=== PATIENT | male | born 1995 | race Two or more races ===

== ENCOUNTER 2018-10-24 20:24 | Emergency (ER) | payer SELFPAY ==
[~2018-10-24] VITALS: Ht 190.5 cm; Wt 81.6 kg
[2018-10-24 20:35] VITALS: BP 130/75
--- NOTE | 2018-10-24 20:35 | NUR ---
ED Nurse Note: Patient walked into ED c/o vomiting that started yesterday accompanied by abdominal pain. states that he started experiencing these symptoms after eating pasta. reports 4 episodes of vomiting. Alert and oriented x4, verbally reponsive. VSS.
--- NOTE | 2018-10-24 20:52 | Emergency Room Report ---
History of Present Illness General Chief Complaint: Vomiting Source: Patient (Jose Lunsford MD) Present Illness HPI This patient's abdominal pain began at 4 AM. Patient has a history of Crohn's disease. He is never had pain like this before. He takes Imuran every 2 weeks. Denies any fevers or chills. He was vomiting this afternoon. The pain is episodic and when it hits him is fairly severe. At this time he rates the pain 9/10 and cramping but an underlying amount of it is constant. It does not radiate. He feels it below his bellybutton. He last moved his bowels at 2 PM. No diarrhea. He denies any dysuria. No ill contacts. No unusual foods recognized. No sore throat, chest pain, palpitations, dysuria, shortness of breath, joint pain, rashes, depression, anxiety, visual changes, headache. (Jose Lunsford MD) Allergies: Coded Allergies: No Known Allergies (Unverified , 10/24/18) Patient History Past Medical History: see triage record Social History: Denies: smoking, alcohol use, drug use Social History Narrative Visiting from [place] - will be in town 2 weeks Reviewed Nursing Documentation: PMH: Agreed; PSxH: Agreed (Jose Lunsford MD) Nursing Documentation-PMH Past Medical History: No History, Except For (Jose Lunsford MD) Review of Systems All Other Systems: negative except mentioned in HPI (Jose Lunsford MD) Physical Exam Vital Signs Date Time Temp Pulse Resp B/P (MAP) Pulse Ox O2 Delivery O2 Flow Rate FiO2 10/24/18 20:29 98.8 77 18 130/75 (93) 94 Room Air Sp02 EP Interpretation: reviewed, normal General Appearance: well appearing, no apparent distress, GCS 15 Head: normocephalic, atraumatic Eyes: bilateral eye normal inspection, bilateral eye PERRL, bilateral eye EOMI ENT: moist mucus membranes Neck: supple Respiratory: lungs clear, normal breath sounds Cardiovascular #1: regular rate, rhythm Cardiovascular #2: 2+ radial (R) Gastrointestinal: normal inspection, normal bowel sounds, no mass, non- distended, no guarding, no rebound, tenderness - Suprapubic and right lower quadrant Genitourinary: no CVA tenderness Musculoskeletal: back normal, gait/station normal, normal range of motion Neurologic: alert, oriented x3, grossly normal Psychiatric: mood/affect normal Skin: no rash (Jose Lunsford MD) Medical Decision Making Diagnostic Impression: Primary Impression: Abdominal pain Qualified Codes: R10.9 - Unspecified abdominal pain Additional Impression: History of Crohn's disease ER Course The patient has a history of Crohn's disease and presents with abdominal pain. Differential includes diverticulitis, appendicitis, gastroenteritis, exacerbation of Crohn's disease amongst others. Evaluation will be with labs. The patient will receive IV hydration, Zofran and morphine. Depending his labs CT of the scan of the abdomen may need to be ordered. Patient with leukocytosis. This is a complex history of this patient with Crohn's on Imuran and due to the area of the pain we need to exclude appendicitis definitively. A CT of the abdomen has been ordered. Pain resolved. Abdomen is soft without guarding or rebound. Signed out to Dr. Campos to review CT and urinalysis. (Consideration of outpatient observation and re-evaluation in the emergency department as the patient is visiting and has no other outpatient follow-up option.) (Jose Lunsford MD) ER Course Hospital Course 23-year-old M presents to ED with abdominal pain Clinical course patient initially seen and evaluated by Dr Lunsford; please see his note for full history and physical Labs - minimal leukocytosis, electrolytes ok, LFTs normal, UA unremarkable CT scan shows inflammation in RLQ consistent with terminal ileitis. On reassessment pain improved. No guarding or rebound. No signs of appendicitis. History of Crohn's disease which is consistent with terminal ileitis. Patient states he feels better and wishes to be discharged. We provided with prescriptions. Instructed to return to ED if symptoms worsen I feel this is a highly complex case requiring extensive working including EKG/ Rhythm strip, Xray/CT/US, Blood/urine lab work, repeat exams while in ED, and administration of strong opiates/narcotics for pain control, admission to hospital or close patient follow up. Diagnosis - abdominal pain, h/o crohns disease Stable and discharged to home. Followup with PMD. Return to ED if symptoms recur or worsen Labs Test 10/24/18 21:25 10/24/18 23:02 White Blood Count 11.0 K/UL (4.8-10.8) Red Blood Count 5.10 M/UL (4.70-6.10) Hemoglobin 16.7 G/DL (14.2-18.0) Hematocrit 45.7 % (42.0-52.0) Mean Corpuscular Volume 90 FL (80-99) Mean Corpuscular Hemoglobin 32.7 PG (27.0-31.0) Mean Corpuscular Hemoglobin Concent 36.5 G/DL (32.0-36.0) Red Cell Distribution Width 10.8 % (11.6-14.8) Platelet Count 269 K/UL (150-450) Mean Platelet Volume 6.3 FL (6.5-10.1) Neutrophils (%) (Auto) 80.7 % (45.0-75.0) Lymphocytes (%) (Auto) 11.0 % (20.0-45.0) Monocytes (%) (Auto) 7.0 % (1.0-10.0) Eosinophils (%) (Auto) 0.2 % (0.0-3.0) Basophils (%) (Auto) 1.2 % (0.0-2.0) Prothrombin Time 12.5 SEC (9.30-11.50) Prothromb Time International Ratio 1.2 (0.9-1.1) Activated Partial Thromboplast Time 32 SEC (23-33) Sodium Level 141 MMOL/L (136-145) Potassium Level 3.9 MMOL/L (3.5-5.1) Chloride Level 106 MMOL/L (98-107) Carbon Dioxide Level 23 MMOL/L (21-32) Anion Gap 12 mmol/L (5-15) Blood Urea Nitrogen 14 mg/dL (7-18) Creatinine 1.2 MG/DL (0.55-1.30) Estimat Glomerular Filtration Rate > 60 mL/min (>60) Glucose Level 105 MG/DL (74-106) Calcium Level 8.7 MG/DL (8.5-10.1) Total Bilirubin 1.0 MG/DL (0.2-1.0) Aspartate Amino Transf (AST/SGOT) 31 U/L (15-37) Alanine Aminotransferase (ALT/SGPT) 25 U/L (12-78) Alkaline Phosphatase 77 U/L (46-116) Total Creatine Kinase 276 U/L (26-308) Total Protein 8.5 G/DL (6.4-8.2) Albumin 3.9 G/DL (3.4-5.0) Globulin 4.6 g/dL Albumin/Globulin Ratio 0.8 (1.0-2.7) Lipase 123 U/L (73-393) Urine Color Pale yellow Urine Appearance Clear Urine pH 6.5 (4.5-8.0) Urine Specific Tye 1.015 (1.005-1.035) Urine Protein 1+ (NEGATIVE) Urine Glucose (UA) Negative (NEGATIVE) Urine Ketones 2+ (NEGATIVE) Urine Blood Negative (NEGATIVE) Urine Nitrite Negative (NEGATIVE) Urine Bilirubin Negative (NEGATIVE) Urine Urobilinogen Normal MG/DL (0.0-1.0) Urine Leukocyte Esterase Negative (NEGATIVE) Urine RBC 0-2 /HPF (0 - 0) Urine WBC 0-2 /HPF (0 - 0) Urine Squamous Epithelial Cells None /LPF (NONE/OCC) Urine Bacteria Few /HPF (NONE) (Rodrigo Campos MD) CT/MRI/US Diagnostic Results CT/MRI/US Diagnostic Results : Imaging Test Ordered: CT A/P Impression Studies significantly degraded by patient motion. The only clinical history indication provided was abdominal pain . Hepatosplenomegaly present. No acute findings identified involving the solid abdominal organs. The gallbladder is minimally distended, no radiopaque stones identified. Moderate irregular wall thickening of the distal and terminal ileum with luminal narrowing. The more proximal portions of the ileum are moderately distended and contain fecal-like material consistent with a subacute obstructive process. The appendix is not definitively identified however what may reflect portions of a normal appendix are noted on coronal reconstructed imaging only. There is significant fluid in the right lower quadrant and dependent pelvis consistent with inflammatory process likely associated with terminal ileitis that may be infectious or inflammatory. Appendicitis cannot be excluded given the presence of probable inflammatory fluid in the right lower quadrant and non-definitive identification of the appendix. Mild bladder wall thickening with reticulation may reflect mild chronic outlet obstruction or cystitis. Negative for pneumatosis or pneumoperitoneum. (Rodrigo Campos MD) Last Vital Signs Date Time Temp Pulse Resp B/P (MAP) Pulse Ox O2 Delivery O2 Flow Rate FiO2 10/25/18 00:08 98.5 80 18 132/70 98 Room Air Status: improved (Jose Lunsford MD) Status: improved (Rodrigo Campos MD) Disposition: HOME, SELF-CARE Condition: Stable Scripts Acetaminophen (Tylenol) 325 Mg Tablet 650 MG ORAL Q6H PRN for Prn Pain/Headache/Temp > 101, #20 TAB 0 Refills Prov: Jose Lunsford MD 10/24/18 Ondansetron Odt* (ZOFRAN ODT*) 4 Mg Tab.rapdis 4 MG BC EVERY 8 HOURS, #6 TAB 0 Refills Prov: Jose Lunsford MD 10/24/18 Jose Lunsford MD Oct 24, 2018 20:52 Rodrigo Campos MD Oct 25, 2018 01:39
[2018-10-24] MEDS ORDERED: Morphine Sulfate 2mg/ml Inj(IV/IM USE ONLY) IVP ONE (21:00)
[2018-10-24 21:42] LABS: BASOPHILS % (AUTO) 1.2 % (0.0-2.0); EOSINOPHILS % (AUTO) 0.2 % (0.0-3.0); HEMATOCRIT 45.7 % (42.0-52.0); HEMOGLOBIN 16.7 G/DL (14.2-18.0); MEAN CORPUSCULAR VOLUME 90 FL (80-99); NEUTROPHILS % (AUTO) 80.7 % (45.0-75.0); PLATELET COUNT 269 K/UL (150-450); RED CELL DISTRIBUTION WIDTH 10.8 % (11.6-14.8)
[2018-10-24 21:50] LABS: ANION GAP 12 mmol/L (5-15); BLOOD UREA NITROGEN 14 mg/dL (7-18); CALCIUM 8.7 MG/DL (8.5-10.1); CARBON DIOXIDE 23 MMOL/L (21-32); CHLORIDE 106 MMOL/L (98-107); CREATININE 1.2 MG/DL (0.55-1.30); POTASSIUM 3.9 MMOL/L (3.5-5.1); SODIUM 141 MMOL/L (136-145)
[2018-10-24 21:51] LABS: INR 1.2 (0.9-1.1)
[2018-10-24 22:00] LABS: ALANINE AMINOTRANSFERASE 25 U/L (12-78); ALBUMIN 3.9 G/DL (3.4-5.0); ALBUMIN/GLOBULIN RATIO 0.8 (1.0-2.7); ALKALINE PHOSPHATASE 77 U/L (46-116); ASPARTATE AMINO TRANSFERASE 31 U/L (15-37); CREATINE KINASE 276 U/L (26-308)
--- NOTE | 2018-10-24 22:10 | NUR ---
ED Nurse Note: Went down to CT. Patient able to walk without difficulty.
[2018-10-24] MEDS ORDERED: Isovue-300 100ml vial INJ PRN (22:15)
--- NOTE | 2018-10-24 22:30 | NUR ---
ED Nurse Note: Came back from CT.
[2018-10-24] MEDS ORDERED: ONDANSETRON ODT4 MG BC (22:40)
[2018-10-24] MEDS ORDERED: TYLENOL325 MG ORAL (22:40)
--- NOTE | 2018-10-24 23:05 | Diagnostic Imaging Report ---
Indication: Abdominal pain Technique: Continuous helical transaxial imaging of the abdomen and pelvis was obtained from the lung bases to the pubic symphysis during intravenous contrast administration. Coronal 2-D reformats were also obtained. Study obtained in a Siemens sensation [address] Automatic Exposure Control was utilized. Total Dose length Product (DLP): 589.[address] Dose Index Volume (CTDIvol): 10.78 mGy Comparison: None Findings: Lung bases are clear. The liver is, spleen, pancreas, gallbladder, kidneys are unremarkable. Bowel gas pattern appears nonobstructive. There is marked distention of the terminal ileum with fecal-like material distending the lumen. There is enhancement and thickening of the wall extending several centimeters from the ileocecal valve with the the abnormal segment noted mainly within the pelvis adjacent to the urinary bladder. The appendix is not seen. The findings are suspicious for ileitis and Crohn's disease. Please correlate clinically. There is no abscess. The colon is relatively decompressed. IMPRESSION: Severe distention of the terminal ileum with fecal-like material indicative of stasis. Wall thickening noted. Findings suspicious for terminal ileitis and Crohn's disease. Further clinical evaluation recommended. No abscess. [facility] has communicated the preliminary results to the Emergency Department. Their findings are largely concordant with this report. The CT scanner at [facility] is accredited by the [employer] and the scans are performed using dose optimization techniques as appropriate to a performed exam including Automatic Exposure control.
[2018-10-24 23:11] LABS: APPEARANCE,URINE CLEAR; BILIRUBIN, URINE NEGATIVE (NEGATIVE); COLOR,URINE PALE YELLOW; GLUCOSE, URINE (UA) NEGATIVE (NEGATIVE); KETONES,URINE 2+ (NEGATIVE); LEUKOCYTE ESTERASE ,URINE NEGATIVE (NEGATIVE); NITRITE,URINE NEGATIVE (NEGATIVE); PH,URINE 6.5 (4.5-8.0); PROTEIN,URINE 1+ (NEGATIVE); UROBILINOGEN,URINE NORMAL MG/DL (0.0-1.0)
[2018-10-24 23:28] VITALS: BP 132/70
[2018-10-25 00:08] VITALS: BP 132/70
--- NOTE | 2018-10-25 00:08 | NUR ---
ER DISCHARGE NOTE: Patient is cleared to be discharged per ERMD, pt is aox4, on room air, with stable vital signs. pt was given dc and prescription instructions, pt was able to verbalize understanding, pt id band and iv site removed without complications. pt is able to ambulate with steady gait. pt took all belongings. Accompanied home by a friend.
--- NOTE | 2018-10-25 12:01 | Diagnostic Imaging Report ---
Indication: Dyspnea Comparison: None A single view chest radiograph was obtained. Findings: Cardiomediastinal appearance is within normal limits for age. The lungs are clear. Pulmonary vascularity is appropriate. The diaphragmatic contour is smooth and costophrenic angles are sharp. No pleural effusions are identified. The bones are unremarkable. Impression: No acute findings
--- NOTE | 2018-10-25 12:02 | Diagnostic Imaging Report ---
Indication: Abdominal pain Comparison: None Single view of the abdomen obtained Findings: There is a very little bowel gas present. Some stool noted within the colon as well as some air. Bones are unremarkable. IMPRESSION: No acute findings identified. Limited evaluation due to relative absence of bowel gas The patient had a subsequent CT examination which was abnormal. Please refer to the CT report
== END 2018-10-25 00:08 | disposition home or self-care (01) ==
LOC: EMR 20:48
DX: R10.9 Unspecified abdominal pain (principal); K50.90 Crohn's disease, unspecified, without complications; D72.829 Elevated white blood cell count, unspecified; R16.2 Hepatomegaly with splenomegaly, not elsewhere classified
CPT/HCPCS: 36415; 71045; 74018; 74177; 80053; 81003; 82550; 83690; 85025; 85610; 85730; 96361; 96374; 96375; 99284; J2270; J2405; Q9967